=== PATIENT | female | born 1940 | race Hispanic/Latino ===

== ENCOUNTER 2016-11-16 11:04 | Outpatient (CLI) | payer MEDICARE ==
--- NOTE | 2016-11-16 18:21 | RAD ---
RIGHT KNEE FOUR VIEWS: Date: 11-16-16 Comparison: Views of the left knee. FINDINGS: The findings are similar. There is some slight medial joint space narrowing, though not as much as on the left. Small osteophytes are seen around the joint. There may be a little calcification in t he medial meniscus. Some faint ossifications in the central part of the joint could relate to old c ruciate ligament injury. No joint effusion was seen. Patellofemoral osteophytes are present. IMPRESSION: Arthritic changes as noted. POS: HOME
--- NOTE | 2016-11-17 07:23 | RAD ---
LEFT KNEE FOUR VIEWS: Date: 11-16-16 FINDINGS: Mild medial joint space narrowing is present along with some small osteophytes. No fracture or larg e joint effusion was seen. Minimal osteophytes are seen in the patellofemoral joint. There are baljeet e ossifications in the central portion of the joint which could relate to prior cruciate ligament in jury. IMPRESSION: 1. Mild osteoarthritis, particularly medial compartment. 2. Possible prior cruciate ligament damage. POS: HOME
== END 2016-11-16 11:05 | disposition home or self-care (01) ==
LOC: BURRAD 11:04
PROVIDERS: ATTEND Family Medicine
DX: M25.561 Pain in right knee (principal); M25.562 Pain in left knee; M17.12 Unilateral primary osteoarthritis, left knee

== ENCOUNTER 2016-11-16 15:38 | Outpatient (CLI) | payer MEDICARE | END 2016-11-16 15:39 | LOC: HPCALD 15:38 | PROVIDERS: ATTEND Family Medicine | DX: E03.9 Hypothyroidism, unspecified (principal) | CPT/HCPCS: 36415; 84443 ==

== ENCOUNTER 2017-12-15 16:50 | Outpatient (CLI) | payer MEDICARE ==
--- NOTE | 2017-12-15 21:27 | RAD ---
CHEST TWO VIEWS 12/15/17 Comparison is made with 06/15/11 study. The heart is mildly enlarged as before but there are no congestive findings or pleural effusions. The lungs are clear. Calcific tendinitis is suggested in the right shoulder. IMPRESSION: Mild cardiomegaly but no acute findings. POS: HOME
[2017-12-15 21:57] LABS: #Eosinphils 0.2 thou/uL (0.0-0.7); #Lymphocytes 3.2 thou/uL (1.20-3.40); #Monocytes 0.7 thou/uL (0.11-0.59); #Neutrophils 6.6 thou/uL (1.40-6.50); %Basophils 0.3 % (0.0-1.0); %Eosinophils 1.4 % (0.0-10.0); %Lymphocytes 29.6 % (21.0-51.0); %Monocytes 6.8 % (0.0-10.0); %Neutrophils 61.9 % (42.0-75.0); Hemoglobin 13.9 g/dL (12.0-16.0); Mean Corpuscular HGB CONC 33.7 g/dL (32.0-36.0); Mean Corpuscular Hemoglobin 31.4 pg (27.0-31.0); Mean Corpuscular Volume 93.2 fl (81.0-99.0); Mean Platelet Volume 8.1 fL (7.4-10.4); Platelet Count 249 thou/uL (130-400); RBC Distribution Width 11.7 % (11.5-14.5); Red Blood Cell (RBC) Count 4.43 mill/uL (4.20-5.40); White Blood Cell (WBC) Count 10.7 thou/uL (4.8-10.8)
[2017-12-15 22:01] LABS: ALT (SGPT) 14 U/L (8-55); AST (SGOT) 18 U/L (5-34); Albumin 4.6 g/dL (3.4-4.8); Alkaline Phosphatase 89 U/L (40-150); Anion Gap 12 mmol/L (10-20); BUN (Urea Nitrogen) 18 mg/dL (9.8-20.1); Bilirubin, Total 0.3 mg/dL (0.2-1.2); Calc. Creatinine Clearance 0 mL/min (70-130); Calcium 10.4 mg/dL (7.8-10.44); Carbon Dioxide 29 mmol/L (23-31); Chloride 100 mmol/L (98-107); Estimated GFR-MDRD 59; Globulin 3.1 g/dL (2.4-3.5); Glucose 148 mg/dL (83-110); Potassium 3.5 mmol/L (3.5-5.1); Protein, Total 7.7 g/dL (6.0-8.3); Sodium 137 mmol/L (136-145)
== END 2017-12-15 16:51 | disposition home or self-care (01) ==
LOC: BUREKG 16:50
PROVIDERS: ATTEND Family Medicine
DX: Z01.818 Encounter for other preprocedural examination (principal); I51.7 Cardiomegaly
CPT/HCPCS: 36415; 71046; 80053; 85025; 93005; 93010

== ENCOUNTER 2021-04-26 10:15 | Emergency (ER) | payer MEDICARE | END 2021-04-26 11:00 | disposition home or self-care (01) | LOC: BURERS 10:15 | DX: S63.501A Unspecified sprain of right wrist, initial encounter (principal); I10 Essential (primary) hypertension; W19.XXXA Unspecified fall, initial encounter ==